=== PATIENT | male | born 1950 | race Caucasian/White ===

== ENCOUNTER 2017-01-29 14:38 | Emergency (ER) | payer MEDICAID ==
[~2017-01-29] VITALS: Ht 165.1 cm; Wt 104.0 kg
[~2017-01-29 14:38] MED LIST: CLAR10 PO; Fluticasone Propionate BOTHNSTRLS; TAMS-11 PO
[2017-01-29 15:26] VITALS: BP 138/89
== END 2017-01-29 16:01 | disposition home or self-care (01) ==
LOC: ER 15:00
DX: R09.89 Other specified symptoms and signs involving the circulatory and respiratory systems (principal); K14.6 Glossodynia; I10 Essential (primary) hypertension
CPT/HCPCS: 99281